=== PATIENT | female | born 2000 | race Caucasian/White ===

== ENCOUNTER 2019-12-15 01:00 | Observation (INO) ==
[2019-12-15 01:44] LABS: Amorphous Sediment,Urine Few per hpf (None-Few); Bacteria,Urine Few per hpf (None-Few); Bilirubin,Urine Negative (Negative); Blood,Urine Negative (Negative); Clarity,Urine Turbid (Clear); Color,Urine Light-Yellow (Yellow); Glucose,Urine (UA) Normal (Normal); Ketones,Urine Negative (Negative); Leukocyte Esterase,Urine Negative (Negative); Mucus,Urine Few per lpf (None-Few); Nitrite,Urine Negative (Negative); Protein,Urine Trace mg/dL (Neg-Trace); RBC,Urine 0-3 per hpf (0-3); Specific Gravity,Urine 1.015 (1.010-1.025); Squamous Epithelial Cell,Urine Few per hpf (None-Few); Urobilinogen,Urine Normal (Normal)
[2019-12-15 01:47] LABS: Basophils % 0.3 %; Eosinophils # 0.1 K/mcL (0.0-0.6); Eosinophils % 0.8 %; Hematocrit 35.8 % (35.3-44.9); Hemoglobin 11.8 g/dL (11.5-15.4); Immature Granulocytes % 0.6 % (0-4); Lymphocytes # 2.8 K/mcL (0.6-4.6); Lymphocytes % 19.5 %; Mean Corpuscular Hemoglobin 28.9 pg (28.0-33.3); Mean Corpuscular Volume 87.7 fL (83.0-100.0); Mean Platelet Volume 10.6 fL (9.4-12.4); Monocytes # 0.8 K/mcL (0.0-1.3); Monocytes % 5.9 %; Neutrophils # 10.3 K/mcL (1.6-8.9); Platelet Count 250 K/mcL (140-400); Red Blood Count 4.08 M/mcL (3.82-4.97); Red Cell Distribution Width 12.1 % (11.5-14.5); Segmented Neutrophils % 72.9 %; White Blood Count 14.2 K/mcL (4.3-11.1)
[2019-12-15 01:55] LABS: Protein/Creatinine Ratio,Urine 0.17 mg/mg (0.00-0.20)
[2019-12-15 02:03] LABS: Alanine Aminotransferase 10 Units/L (7-52); Aspartate Amino Transferase 14 Units/L (13-39); BUN/Creatinine Ratio 18 (6-26); Blood Urea Nitrogen 10 mg/dL (6-20); Lactate Dehydrogenase 162 Units/L (140-271); Uric Acid 6.2 mg/dL (2.3-7.6); eGFR For African Americans > 60 (> 60); eGFR For Non-African Americans > 60 (> 60)
== END 2019-12-15 03:03 | disposition home or self-care (01) ==
LOC: 1NENULAB
PROVIDERS: ADMIT Obstetrics & Gynecology; ATTEND Obstetrics & Gynecology

== ENCOUNTER → 2019-12-20 16:48 | Observation (INO) ==
[2019-12-20 13:39] LABS: Basophils % 0.2 %; Eosinophils # 0.1 K/mcL (0.0-0.6); Eosinophils % 0.6 %; Hematocrit 35.8 % (35.3-44.9); Hemoglobin 11.9 g/dL (11.5-15.4); Immature Granulocytes % 0.5 % (0-4); Lymphocytes # 2.3 K/mcL (0.6-4.6); Mean Corpuscular HGB Conc 33.2 g/dL (31.6-35.5); Mean Corpuscular Hemoglobin 28.5 pg (28.0-33.3); Mean Corpuscular Volume 85.9 fL (83.0-100.0); Mean Platelet Volume 10.8 fL (9.4-12.4); Monocytes # 0.5 K/mcL (0.0-1.3); Monocytes % 4.3 %; Neutrophils # 7.5 K/mcL (1.6-8.9); Platelet Count 235 K/mcL (140-400); Red Blood Count 4.17 M/mcL (3.82-4.97); Red Cell Distribution Width 12.1 % (11.5-14.5); Segmented Neutrophils % 72.4 %; White Blood Count 10.4 K/mcL (4.3-11.1)
[2019-12-20 13:49] LABS: Protein/Creatinine Ratio,Urine 0.26 mg/mg (0.00-0.20)
[2019-12-20 13:56] LABS: Alanine Aminotransferase 12 Units/L (7-52); Aspartate Amino Transferase 14 Units/L (13-39); BUN/Creatinine Ratio 10 (6-26); Blood Urea Nitrogen 6 mg/dL (6-20); Lactate Dehydrogenase 184 Units/L (140-271); Uric Acid 6.9 mg/dL (2.3-7.6); eGFR For African Americans > 60 (> 60); eGFR For Non-African Americans > 60 (> 60)
== END | disposition home or self-care (01) ==
LOC: 1NENULAB
PROVIDERS: ADMIT Obstetrics & Gynecology; ATTEND Obstetrics & Gynecology

== ENCOUNTER 2019-12-27 09:35 | Observation (INO) ==
[2019-12-26 11:36] LABS: Basophils % 0.2 %; Eosinophils # 0.1 K/mcL (0.0-0.6); Eosinophils % 0.9 %; Hematocrit 34.9 % (35.3-44.9); Hemoglobin 11.5 g/dL (11.5-15.4); Immature Granulocytes % 0.4 % (0-4); Lymphocytes # 2.2 K/mcL (0.6-4.6); Lymphocytes % 21.1 %; Mean Corpuscular Hemoglobin 28.3 pg (28.0-33.3); Mean Platelet Volume 10.6 fL (9.4-12.4); Monocytes # 0.7 K/mcL (0.0-1.3); Monocytes % 6.8 %; Neutrophils # 7.2 K/mcL (1.6-8.9); Platelet Count 237 K/mcL (140-400); Red Blood Count 4.06 M/mcL (3.82-4.97); Red Cell Distribution Width 12.2 % (11.5-14.5); Segmented Neutrophils % 70.6 %; White Blood Count 10.3 K/mcL (4.3-11.1)
[2019-12-26 11:46] LABS: Protein/Creatinine Ratio,Urine 0.21 mg/mg (0.00-0.20)
[2019-12-26 12:07] LABS: Alanine Aminotransferase 12 Units/L (7-52); Aspartate Amino Transferase 16 Units/L (13-39); BUN/Creatinine Ratio 14 (6-26); Blood Urea Nitrogen 8 mg/dL (6-20); Lactate Dehydrogenase 158 Units/L (140-271); Uric Acid 6.7 mg/dL (2.3-7.6); eGFR For African Americans > 60 (> 60); eGFR For Non-African Americans > 60 (> 60)
[2019-12-26] MEDS: Betamethasone Acet/SodPhos 30 MG/5 ML VIAL IM SCH (14:11)
[~2019-12-27 09:35] MED LIST: Acetaminophen 325 MG TABLET PO ONE; Ondansetron 4 MG/2 ML VIAL IVP PRN
[2019-12-27 09:38] VITALS: BP 123/77
[2019-12-27] MEDS: Betamethasone Acet/SodPhos 30 MG/5 ML VIAL IM SCH (13:00)
[2019-12-27 14:21] LABS: Total Volume 24 Hour,Urine 1.87 Liters (0.60-1.60)
== END 2019-12-27 15:20 | disposition home or self-care (01) ==
LOC: 1NENULAB → 1NENUOBS 09:35
PROVIDERS: ADMIT Obstetrics & Gynecology; ATTEND Obstetrics & Gynecology

== ENCOUNTER 2019-12-28 15:08 | Inpatient (IN) ==
[2019-12-28] MEDS ORDERED: Metoclopramide 10 MG/2 ML VIAL IVP PRN (15:50)
[2019-12-28] MEDS ORDERED: *HR* FentaNYL (PF) 100 MCG/2 ML VIAL IVP PRN (15:50)
[2019-12-28] MEDS ORDERED: Lidocaine 1% 20 ML MDV ID PRN (15:50)
[2019-12-28] MEDS ORDERED: Naloxone 0.4 MG/ML INJ IVP PRN (15:50)
[2019-12-28] MEDS ORDERED: Azithromycin 500 MG in 0.9 % Sodium Chloride 250 ML IVPB ONE (15:50)
[2019-12-28] MEDS ORDERED: Ondansetron 4 MG/2 ML VIAL IVP PRN (15:50)
[2019-12-28] MEDS ORDERED: Famotidine 20 MG/2 ML VIAL IVP PRN (15:50)
[2019-12-28] MEDS ORDERED: D5% in Lactated Ringers 1,000 ML IVC SCH (16:00)
[2019-12-28] MEDS ORDERED: Ringers Solution, Lactated 1,000 ML IVC SCH (16:00)
[2019-12-28] MEDS ORDERED: Vancomycin (wt based) 1,000 MG VIAL IVPB SCH (16:29)
[2019-12-28] MEDS ORDERED: miSOPROStoL 25 MCG TABLET PO ONE (16:30)
[2019-12-28 16:35] LABS: Basophils % 0.3 %; Eosinophils % 0.1 %; Hematocrit 37.9 % (35.3-44.9); Hemoglobin 12.5 g/dL (11.5-15.4); Immature Granulocytes % 2.3 % (0-4); Lymphocytes # 2.5 K/mcL (0.6-4.6); Lymphocytes % 16.3 %; Mean Corpuscular Hemoglobin 29.1 pg (28.0-33.3); Mean Corpuscular Volume 88.1 fL (83.0-100.0); Mean Platelet Volume 11.1 fL (9.4-12.4); Monocytes % 6.5 %; Neutrophils # 11.5 K/mcL (1.6-8.9); Nucleated Red Blood Cells 0.2 /100 WBC (0); Platelet Count 268 K/mcL (140-400); Protein/Creatinine Ratio,Urine 0.32 mg/mg (0.00-0.20); Red Cell Distribution Width 12.5 % (11.5-14.5); Segmented Neutrophils % 74.5 %; White Blood Count 15.4 K/mcL (4.3-11.1)
[2019-12-28 16:49] LABS: Alanine Aminotransferase 19 Units/L (7-52); Aspartate Amino Transferase 22 Units/L (13-39); BUN/Creatinine Ratio 15 (6-26); Blood Urea Nitrogen 10 mg/dL (6-20); Lactate Dehydrogenase 208 Units/L (140-271); Uric Acid 6.8 mg/dL (2.3-7.6); eGFR For African Americans > 60 (> 60); eGFR For Non-African Americans > 60 (> 60)
[2019-12-28] MEDS: Vancomycin 2,000 MG/520 ML IV.SOLN IVPB SCH (17:58)
[2019-12-28] MEDS ORDERED: Acetaminophen 325 MG TABLET PO PRN (20:13)
[2019-12-28] MEDS ORDERED: miSOPROStoL 25 MCG TABLET PO STA (21:04)
[2019-12-29] MEDS ORDERED: EPHEDrine 50 MG/ML VIAL IVP PRN (00:43)
[2019-12-29] MEDS ORDERED: Oxytocin 20 units/ LR 1000 mL 20 UNIT/1,000 ML BAG IVC SCH ×2 (00:45→07:54)
[2019-12-29] MEDS ORDERED: Epidural Premix (fent/bupiv) 110 ML EP SCH (00:45)
[2019-12-29] MEDS ORDERED: Epidural Premix (fent/bupiv) 110 ML EP ONE (00:50)
[2019-12-29] MEDS: Vancomycin 2,000 MG/520 ML IV.SOLN IVPB SCH (01:50)
[2019-12-29] MEDS ORDERED: Rho Immune Globulin 1,500 UNIT SYRINGE IM PRN (07:54)
[2019-12-29] MEDS ORDERED: Measles/Mumps/Rubella Vacc 0.5 ML VIAL SQ PRN (07:54)
[2019-12-29] MEDS ORDERED: Lanolin 7 G OINT...G. TP PRN (07:54)
[2019-12-29] MEDS ORDERED: *HR* HYDROcodone/Acet 5/325 mg TABLET PO PRN (07:54)
[2019-12-29] MEDS: Acetaminophen 325 MG TABLET PO SCH (16:58)
[2019-12-29] MEDS: Benzocaine/Menthol 56 GM AEROSOL SPRAY TP PRN ×2 (16:58→17:32)
[2019-12-29] MEDS ORDERED: Benzocaine/Menthol 56 GM AEROSOL SPRAY TP ONE (17:07)
[2019-12-29] MEDS: Prenatal Vit/FA 1 EACH TABLET PO SCH (17:31)
[2019-12-29] MEDS: Ibuprofen 600 MG TABLET PO SCH (20:10)
[2019-12-30] MEDS: Ibuprofen 600 MG TABLET PO SCH (06:20)
[2019-12-30] MEDS: Acetaminophen 325 MG TABLET PO SCH ×2 (06:32→12:55)
[2019-12-30] MEDS: Benzocaine/Menthol 56 GM AEROSOL SPRAY TP PRN (06:32)
[2019-12-30] MEDS: Prenatal Vit/FA 1 EACH TABLET PO SCH (08:02)
[2019-12-30 08:07] LABS: Basophils % 0.3 %; Eosinophils # 0.2 K/mcL (0.0-0.6); Eosinophils % 1.2 %; Hematocrit 31.1 % (35.3-44.9); Hemoglobin 9.9 g/dL (11.5-15.4); Lymphocytes # 4.3 K/mcL (0.6-4.6); Lymphocytes % 27.3 %; Mean Corpuscular HGB Conc 31.8 g/dL (31.6-35.5); Mean Corpuscular Hemoglobin 28.4 pg (28.0-33.3); Mean Corpuscular Volume 89.4 fL (83.0-100.0); Mean Platelet Volume 11.9 fL (9.4-12.4); Monocytes # 1.1 K/mcL (0.0-1.3); Monocytes % 7.1 %; Platelet Count 261 K/mcL (140-400); Red Blood Count 3.48 M/mcL (3.82-4.97); Red Cell Distribution Width 12.5 % (11.5-14.5); Segmented Neutrophils % 63.1 %; White Blood Count 15.6 K/mcL (4.3-11.1)
[2019-12-30 08:12] LABS: Basophils # 0.1 K/mcL (0.0-0.2); Neutrophils # 9.8 K/mcL (1.6-8.9)
[2019-12-30 14:33] VITALS: BP 120/67
== END 2019-12-30 21:20 | disposition home or self-care (01) | DRG 806 ==
LOC: 1NENULAB 15:08 → 1NENUOBS 12-29 08:41
PROVIDERS: ADMIT Obstetrics & Gynecology; ATTEND Obstetrics & Gynecology

== ENCOUNTER 2021-10-06 00:11 | Inpatient (IN) ==
[2021-10-05 21:25] LABS: Bilirubin,Urine Negative (Negative); Blood,Urine Negative (Negative); Clarity,Urine Clear (Clear); Color,Urine Light-Yellow (Yellow); Glucose,Urine (UA) Normal (Normal); Ketones,Urine Negative (Negative); Leukocyte Esterase,Urine Negative (Negative); Nitrite,Urine Negative (Negative); PH,Urine 6.5 pH Units (5.0-8.0); Protein,Urine 30 mg/dL (Neg-Trace); Specific Gravity,Urine 1.019 (1.010-1.025); Urobilinogen,Urine Normal (Normal)
[2021-10-05 21:26] LABS: Basophils % 0.2 %; Eosinophils # 0.1 K/mcL (0.0-0.6); Eosinophils % 0.5 %; Hematocrit 34.2 % (35.3-44.9); Hemoglobin 11.1 g/dL (11.5-15.4); Immature Granulocytes % 0.7 % (0-4); Lymphocytes # 2.1 K/mcL (0.6-4.6); Lymphocytes % 21.2 %; Mean Corpuscular HGB Conc 32.5 g/dL (31.6-35.5); Mean Corpuscular Hemoglobin 27.2 pg (28.0-33.3); Mean Corpuscular Volume 83.8 fL (83.0-100.0); Mean Platelet Volume 11.4 fL (9.4-12.4); Monocytes # 0.4 K/mcL (0.0-1.3); Monocytes % 4.1 %; Neutrophils # 7.3 K/mcL (1.6-8.9); Platelet Count 216 K/mcL (140-400); Red Blood Count 4.08 M/mcL (3.82-4.97); Red Cell Distribution Width 13.5 % (11.5-14.5); Segmented Neutrophils % 73.3 %
[2021-10-05 21:33] LABS: Amphetamine Screen,Urine Negative ng/mL (Cutoff=1000); Barbiturate Screen,Urine Negative ng/mL (Cutoff=200); Benzodiazepines Screen,Urine Negative ng/mL (Cutoff=200); Cannabinoid Screen,Urine Negative ng/mL (Cutoff = 50); Cocaine Screen,Urine Negative ng/mL (Cutoff= 300); Opiate Screen,Urine Negative ng/mL (Cutoff=300); Phencyclidine Screen,Urine Negative ng/mL (Cutoff=25); Protein/Creatinine Ratio,Urine 0.3 mg/mg (0.00-0.20)
[2021-10-05 21:44] LABS: Alanine Aminotransferase 11 Units/L (7-52); Aspartate Amino Transferase 17 Units/L (13-39); BUN/Creatinine Ratio 15 (6-26); Blood Urea Nitrogen 9 mg/dL (6-20); Lactate Dehydrogenase 183 Units/L (140-271); Uric Acid 7.5 mg/dL (2.3-7.6); eGFR For African Americans > 60 (> 60); eGFR For Non-African Americans > 60 (> 60)
[2021-10-05 21:52] LABS: Bacteria,Urine Few per hpf (None-Few); Mucus,Urine Few per lpf (None-Few); RBC,Urine 0-3 per hpf (0-3); Squamous Epithelial Cell,Urine Few per hpf (None-Few); WBC,Urine 0-3 per hpf (0-3)
[2021-10-05] MEDS: Acetaminophen 325 MG TABLET PO PRN (22:34)
[~2021-10-06 00:11] MED LIST changes: +*HR* Labetalol 20 MG/4 ML SYRINGE IVP ONE; -Acetaminophen 325 MG TABLET PO ONE; +Calcium Gluconate 1,000 MG/10 ML VIAL IVP PRN; +EPHEDrine 50 MG/ML VIAL IVP PRN; +Epidural Premix (fent/bupiv) 110 ML EP SCH; +Famotidine 20 MG/2 ML VIAL IVP PRN; +Metoclopramide 10 MG/2 ML VIAL IVP PRN; +Naloxone 0.4 MG/ML INJ IVP PRN; -Ondansetron 4 MG/2 ML VIAL IVP PRN; +Oxytocin 30 UNIT/503 ML BAG IVC ONE; +Oxytocin 30 UNIT/503 ML BAG IVC SCH; +Ringers Solution, Lactated 1,000 ML IVC SCH; +Ringers Solution, Lactated 1,000 ML ONE
[2021-10-06] MEDS: Magnesium Sulf 20 gm/SW 500mL 20 GM/500 ML IV.SOLN IVC SCH ×3 (00:18→20:33)
[2021-10-06 00:29] LABS: Influenza A PCR Negative (Negative); Influenza B PCR Negative (Negative); Resp. Syncytial Virus PCR Negative (Negative)
[2021-10-06 00:30] LABS: SARS-CoV-2 by PCR (In House) Negative (Negative)
[2021-10-06] MEDS: Acetaminophen 325 MG TABLET PO PRN ×2 (04:29→13:47)
[2021-10-06] MEDS ORDERED: *HR* FentaNYL (PF) 100 MCG/2 ML VIAL EP ONE (07:37)
[2021-10-06] MEDS ORDERED: Ropivacaine/PF 0.2% 20 ML VIAL EP ONE (07:37)
[2021-10-06] MEDS ORDERED: miSOPROStoL 100 MCG TABLET RC ONE (11:46)
[2021-10-06] MEDS ORDERED: Ondansetron 4 MG/2 ML VIAL IVP PRN (13:32)
[2021-10-06] MEDS ORDERED: Ropivacaine/PF 0.2% 20 ML VIAL ONE (14:00)
[2021-10-06] MEDS ORDERED: *HR* FentaNYL (PF) 100 MCG/2 ML VIAL ONE (14:00)
[2021-10-06] MEDS ORDERED: Calcium Gluconate 1,000 MG/10 ML VIAL IVP PRN (21:09)
[2021-10-06] MEDS ORDERED: Lanolin 7 G OINT...G. TP PRN (21:09)
[2021-10-06] MEDS ORDERED: Rho Immune Globulin 1,500 UNIT SYRINGE IM PRN (21:09)
[2021-10-06] MEDS ORDERED: Magnesium Sulf 20 gm/SW 500mL 20 GM/500 ML IV.SOLN IVC SCH (21:09)
[2021-10-06] MEDS ORDERED: Oxytocin 30 UNIT/503 ML BAG IVC SCH (21:09)
[2021-10-06] MEDS ORDERED: Ondansetron ODT 4 MG TAB.RAPDIS SL PRN (21:09)
[2021-10-06] MEDS ORDERED: Benzocaine/Menthol 56 GM AEROSOL SPRAY TP PRN (21:09)
[2021-10-07] MEDS ORDERED: *HR* Labetalol 20 MG/4 ML SYRINGE IVP ONE (00:10)
[2021-10-07] MEDS: Ibuprofen 600 MG TABLET PO SCH ×3 (05:31→19:40)
[2021-10-07] MEDS: Acetaminophen 325 MG TABLET PO SCH ×3 (05:32→19:39)
[2021-10-07] MEDS ORDERED: Ringers Solution, Lactated 1,000 ML ONE (09:11)
[2021-10-07] MEDS: Prenatal Vit/FA 1 EACH TABLET PO SCH (09:15)
[2021-10-07] MEDS: NIFEdipine XL (24 HR) 30 MG TAB.ER.24 PO SCH (17:34)
[2021-10-08] MEDS: Ibuprofen 600 MG TABLET PO SCH ×2 (04:04→10:14)
[2021-10-08] MEDS: Acetaminophen 325 MG TABLET PO SCH ×2 (04:04→10:15)
[2021-10-08 04:14] VITALS: BP 133/78; PULSE 71; TEMP 98.1; O2SAT 98
[2021-10-08] MEDS: NIFEdipine XL (24 HR) 30 MG TAB.ER.24 PO SCH (07:37)
[2021-10-08] MEDS: Prenatal Vit/FA 1 EACH TABLET PO SCH (07:38)
[2021-10-08] MEDS ORDERED: NIFEdipine XL (24 HR) 30 MG TAB.ER.24 PO SCH (12:11)
== END 2021-10-08 11:00 | disposition home or self-care (01) | DRG 560 ==
LOC: 1NENULAB → 1NENUOBS 21:09
PROVIDERS: ADMIT Obstetrics & Gynecology; ATTEND Obstetrics & Gynecology